=== PATIENT | female | born 1970 | race Caucasian/White ===

== ENCOUNTER 2017-06-25 17:22 | Emergency (ER) | payer OTHER ==
[~2017-06-25] VITALS: Ht 162.6 cm; Wt 92.1 kg
[2017-06-25 17:31] VITALS: Ht 162.6 cm; Wt 92.1 kg
[2017-06-25 18:47] LABS: BASOPHIL % 0.7 % (0-2); PLATELET COUNT 249 x10^3mcL (130-400); RED CELL DISTRIBUTION WIDTH 13.1 % (11.5-14.5)
[2017-06-25 18:52] LABS: CALCIUM 8.7 mg/dL (8.5-10.1); CARBON DIOXIDE 31.6 mmol/L (21-32); CHLORIDE SERUM 101 mmol/L (98-107); CREATININE SERUM 0.7 mg/dL (0.6-1.0); GFR1 > 60 mL/min; GLUCOSE SERUM 105 mg/dL (74-106); POTASSIUM SERUM 3.7 mmol/L (3.5-5.1); SODIUM SERUM 140 mmol/L (136-145)
[2017-06-25 18:53] LABS: microscopic required? YES; urine erythrocyte NEGATIVE (NEGATIVE)
[2017-06-25 18:56] LABS: ALBUMIN 3.9 g/dL (3.4-5.0); ALKALINE PHOSPHATASE 75 U/L (46-116); ALT/SGPT 50 U/L (14-59); AMYLASE 56 U/L (25-115); AST/SGOT 33 U/L (15-37); BILIRUBIN TOTAL 0.37 mg/dL (0.20-1.00); LIPASE 295 IU/L (73-393); TOTAL PROTEIN, SERUM 7.4 g/dL (6.4-8.2)
[2017-06-25 20:49] VITALS: BP 132/99
== END 2017-06-25 20:49 | disposition home or self-care (01) ==
LOC: ED 17:22
PROVIDERS: Emergency Medicine
DX: R10.32 Left lower quadrant pain (principal); J45.909 Unspecified asthma, uncomplicated; Z88.0 Allergy status to penicillin
CPT/HCPCS: J1885; J2405; Q0092

== ENCOUNTER 2017-12-07 21:36 | Emergency (ER) | payer OTHER ==
[~2017-12-07] VITALS: Ht 162.6 cm; Wt 88.5 kg
[2017-12-07 21:47] VITALS: Ht 162.6 cm; Wt 88.5 kg
[2017-12-07 23:29] LABS: UA SPECIFIC GRAVITY 1.015 (1.005-1.035); microscopic required? YES; urine erythrocyte 3+ (NEGATIVE)
[2017-12-07 23:45] VITALS: BP 136/89
== END 2017-12-07 23:45 | disposition home or self-care (01) ==
LOC: ED 21:36
PROVIDERS: Emergency Medicine
DX: N39.0 Urinary tract infection, site not specified (principal); J45.909 Unspecified asthma, uncomplicated; Z88.0 Allergy status to penicillin; Z98.890 Other specified postprocedural states; Z90.49 Acquired absence of other specified parts of digestive tract
CPT/HCPCS: J1885; Q0162

== ENCOUNTER 2018-03-21 07:36 | Emergency (ER) | payer OTHER ==
[~2018-03-21] VITALS: Ht 162.6 cm; Wt 87.1 kg
[2018-03-21 07:43] VITALS: Ht 162.6 cm; Wt 87.1 kg
[2018-03-21 08:26] LABS: BASOPHIL % 0.9 % (0-2); PLATELET COUNT 256 x10^3mcL (130-400); RED CELL DISTRIBUTION WIDTH 13.9 % (11.5-14.5)
[2018-03-21 08:36] LABS: microscopic required? YES; urine erythrocyte NEGATIVE (NEGATIVE)
[2018-03-21 08:45] LABS: CALCIUM 8.7 mg/dL (8.5-10.1); CARBON DIOXIDE 30.8 mmol/L (21-32); CHLORIDE SERUM 102 mmol/L (98-107); CREATININE SERUM 0.8 mg/dL (0.6-1.0); GFR1 > 60 mL/min; GLUCOSE SERUM 142 mg/dL (74-106); POTASSIUM SERUM 3.9 mmol/L (3.5-5.1); SODIUM SERUM 138 mmol/L (136-145)
[2018-03-21 08:50] LABS: ALKALINE PHOSPHATASE 79 U/L (46-116); ALT/SGPT 31 U/L (14-59); AST/SGOT 23 U/L (15-37); TOTAL PROTEIN, SERUM 7.2 g/dL (6.4-8.2)
[2018-03-21 09:00] LABS: ALBUMIN 3.3 g/dL (3.4-5.0)
[2018-03-21 10:23] VITALS: BP 102/59
== END 2018-03-21 10:23 | disposition home or self-care (01) ==
LOC: ED 07:36
PROVIDERS: Emergency Medicine
DX: N39.0 Urinary tract infection, site not specified (principal); J45.909 Unspecified asthma, uncomplicated; Z88.0 Allergy status to penicillin
CPT/HCPCS: J1885; J7030

== ENCOUNTER 2018-04-13 20:34 | Emergency (ER) | payer OTHER | END 2018-04-13 23:28 | disposition home or self-care (01) | LOC: ED 20:34 ==

== ENCOUNTER 2018-05-02 11:00 | Emergency (ER) | payer OTHER ==
[~2018-05-02] VITALS: Ht 165.1 cm; Wt 88.6 kg
[2018-05-02 11:10] VITALS: Ht 165.1 cm; Wt 88.6 kg
[2018-05-02 13:33] LABS: BASOPHIL % 0.9 % (0-2); PLATELET COUNT 207 x10^3mcL (130-400); RED CELL DISTRIBUTION WIDTH 13.7 % (11.5-14.5)
[2018-05-02 13:41] LABS: T3 TOTAL 0.93 ng/mL
[2018-05-02 13:43] LABS: FREE T4 0.81 ng/dL (0.76-1.46); FREE THYROXINE INDEX 2.2 ug/dL (1.4-4.5); T4(THYROXINE) 7.1 ug/dL (4.7-13.3)
[2018-05-02 13:46] LABS: UA SPECIFIC GRAVITY 1.015 (1.005-1.035); microscopic required? YES; urine erythrocyte TRACE (NEGATIVE)
[2018-05-02 14:18] LABS: ALBUMIN 3.4 g/dL (3.4-5.0); AST/SGOT 102 U/L (15-37); BILIRUBIN TOTAL 0.35 mg/dL (0.20-1.00); C REACTIVE PROTEIN 11.7 mg/dL (<=0.9); CALCIUM 8.5 mg/dL (8.5-10.1); CARBON DIOXIDE 28.7 mmol/L (21-32); CHLORIDE SERUM 99 mmol/L (98-107); CREATININE SERUM 0.8 mg/dL (0.6-1.0); GFR1 > 60 mL/min; GLUCOSE SERUM 120 mg/dL (74-106); POTASSIUM SERUM 3.9 mmol/L (3.5-5.1); SODIUM SERUM 134 mmol/L (136-145); TOTAL PROTEIN, SERUM 7.2 g/dL (6.4-8.2)
[2018-05-02 14:20] LABS: ALT/SGPT 75 U/L (14-59); ERYTHROCYTE SED RATE 24 mm/hr (0-20)
[2018-05-02 14:21] LABS: ALKALINE PHOSPHATASE 78 U/L (46-116)
[2018-05-02 14:28] LABS: CK-MB 0.7 ng/mL (0-3.6)
[2018-05-02 18:37] VITALS: BP 111/73
== END 2018-05-02 18:37 | disposition home or self-care (01) ==
LOC: ED 11:00
PROVIDERS: Specialist
DX: R10.9 Unspecified abdominal pain (principal); R50.9 Fever, unspecified; J45.909 Unspecified asthma, uncomplicated; R31.9 Hematuria, unspecified; Z98.890 Other specified postprocedural states; Z88.0 Allergy status to penicillin; Z90.49 Acquired absence of other specified parts of digestive tract
CPT/HCPCS: 84439; 87804; J1885; J2270; J2405; J7030

== ENCOUNTER 2018-12-14 11:41 | Emergency (ER) | payer OTHER ==
[~2018-12-14] VITALS: Ht 162.6 cm; Wt 84.4 kg
[2018-12-14 11:54] VITALS: Ht 162.6 cm; Wt 84.4 kg
[2018-12-14 12:15] VITALS: BP 133/85
== END 2018-12-14 12:15 | disposition home or self-care (01) ==
LOC: ED 11:41
DX: H66.92 Otitis media, unspecified, left ear (principal); J45.909 Unspecified asthma, uncomplicated; F32.9 Major depressive disorder, single episode, unspecified; Z88.0 Allergy status to penicillin

== ENCOUNTER 2019-12-03 13:16 | Emergency (ER) | payer OTHER ==
[~2019-12-03] VITALS: Ht 165.1 cm; Wt 90.3 kg
[2019-12-03 13:22] VITALS: Ht 165.1 cm; Wt 90.3 kg
[2019-12-03 14:18] VITALS: BP 109/64
== END 2019-12-03 14:19 | disposition home or self-care (01) ==
LOC: ED 13:16
DX: N39.0 Urinary tract infection, site not specified (principal); J45.909 Unspecified asthma, uncomplicated; Z88.0 Allergy status to penicillin

== ENCOUNTER 2020-02-14 09:06 | Emergency (ER) | payer OTHER, SELFPAY ==
[~2020-02-14] VITALS: Ht 167.6 cm; Wt 86.2 kg
[2020-02-14 09:14] VITALS: Ht 167.6 cm; Wt 86.2 kg
[2020-02-14 12:05] VITALS: BP 119/76
== END 2020-02-14 12:05 | disposition home or self-care (01) ==
LOC: ED 09:06
DX: U07.1 COVID-19 (principal); J45.901 Unspecified asthma with (acute) exacerbation; Z88.0 Allergy status to penicillin; Z90.89 Acquired absence of other organs
CPT/HCPCS: J7512; J7613; J7644